=== PATIENT | male | born 1940 ===

== ENCOUNTER 2021-08-07 18:56 | Emergency (ER) | payer SELFPAY ==
[~2021-08-07] VITALS: Ht 175 cm; Wt 87.0 kg
[2021-08-07 19:28] LABS: BASO % 0.4 % (0.0-2.0); EOS # 0.2 K/mm3 (0.0-0.7); EOS % 2.3 % (0.0-4.0); GRAN # 5.9 K/mm3 (1.4-6.5); GRAN % 69.6 % (42.2-75.2); HEMATOCRIT 40.6 % (42.0-52.0); HEMOGLOBIN 13.7 g/dl (13.5-18.0); LYMPH # 1.6 K/mm3 (1.2-3.4); LYMPH % 19.2 % (20.0-51.0); MEAN CELL VOLUME 92 fl (80.0-100.0); MEAN CORPUSCULAR HEMOGLOBIN 31 pg (27-31); MEAN CORPUSCULAR HGB CONC 34 g/dl (33.0-37.0); MEAN PLATELET VOLUME 10.1 fl (7.4-10.4); MONO # 0.7 K/mm3 (0.1-0.6); PLATELET COUNT 221 K/mm3 (130-400); RED BLOOD COUNT 4.41 M/mm3 (4.20-5.60)
[2021-08-07 19:49] LABS: ALBUMIN 4.2 gm/dL (3.4-4.8); CALCIUM 9.3 mg/dL (8.4-10.2); CREATININE, serum 1.02 mg/dL (0.72-1.25); POTASSIUM 4.3 mmol/L (3.5-4.5); TOTAL PROTEIN 7.3 gm/dL (6.2-8.1)
[2021-08-07 20:01] LABS: BILIRUBIN,TOTAL 0.5 mg/dL (0.2-1.2)
[2021-08-07 22:45] VITALS: TEMP 97.6
[2021-08-07 23:09] VITALS: BP 159/79; PULSE 64
== END 2021-08-07 23:10 | disposition home or self-care (01) ==
LOC: COL.ER 18:56
PROVIDERS: Family Medicine
DX: T18.128A Food in esophagus causing other injury, initial encounter (principal)
CPT/HCPCS: J2550; J2704; J7030